=== PATIENT | male | born 1940 | race Caucasian/White ===

== ENCOUNTER 2017-09-07 10:37 | Emergency (ER) | payer MEDICARE, BC ==
[2017-09-07 10:48] VITALS: BP 130/97
--- NOTE | 2017-09-07 11:20 | ERNOTE ---
ER Male HPI Date of Service: 09/07/17 Stated Complaint: BATHROOM ISSUES Time Seen by Provider: 09/07/17 10:53 Source: patient Exam Limitations: no limitations Immunizations: IMMUNIZATION HX Immunizations Up to Date No Allergies/Adverse Reactions: Allergies No Known Allergies Allergy (Unverified 08/26/16 08:31) Home Medications: HOME MEDICATIONS Simvastatin [Zocor] 40 mg PO HS 08/26/16 [Last Taken Unknown] metFORMIN HCL [Glumetza] 1,000 mg PO BID 08/26/16 [Last Taken Unknown] - History of Present Illness Narrative: Pt. comes in with c/o his foreskin not being able to pull back over the head of heis penis when he urinates. Pt. denies any burning with urination, pain, swelling, fever, alleviating or aggravating factor. Pt. states that he and his have attempted to get his foreskin pulled back but it did not help. Review of Systems - Review of Systems Constitutional: Present: no symptoms reported. Absent: recent illness, fever, chills, weakness, fatigue, malaise EYE: Present: no symptoms reported ENT: Present: no symptoms reported Respiratory: Present: no symptoms reported. Absent: shortness of breath, cough , wheezing Cardiology: Present: no symptoms reported. Absent: chest pain, palpitations, edema Gastrointestinal/Abdominal: Present: no symptoms reported. Absent: nausea, vomiting, diarrhea Genitourinary: Present: other - foreskin unable to retract over head of penis Musculoskeletal: Present: no symptoms reported. Absent: back pain, joint pain Skin: Present: no symptoms reported Neurological: Present: no symptoms reported Endocrine: Present: no symptoms reported Hematologic/Lymphatic: Present: no symptoms reported All Other Systems: All systems neg except as marked - Patient's Past Medical History Patient History - Medical: Diabetes Type 2 Patient History - Cardiac/Respiratory: Hyperlipidemia Patient History - Cancer: No Hx of Cancer Patient History - Surgical Procedures: Other - Social History Living Situations: home Psych History: No pertinent hx - Immunizations Immunizations Up to Date: No Physical Exam - Physical Exam General Appearance: Present: wd/wn, alert, no apparent distress Head Exam: Present: normal inspection, no evidence of injury Eye Exam: Normal inspection: bilateral Respiratory: Present: no respiratory distress, normal breath sounds, no accessory muscle use, chest nontender, lungs clear Cardiovascular/Chest: Present: regular rate, rhythm, no murmur, normal peripheral pulses Male Genitals Exam: Present: normal genitalia, normal prostate, no hernia, other - foreskin retracts normally after having gentle stretching applied to fore skin while retracting. Neurological Exam: Present: alert, oriented, normal mood/affect, no motor/ sensory deficits Skin Exam: Present: normal color, warm/dry. Absent: pallor, skin rash ED Progress - Date and Time Seen: Date and Time: 09/07/17 11:09 Demonstrated for and pt. the appropriate way to clean and retract fore skin and to make sure the fore skin is placed back over the head of the penis after each episode of cleaning, urination, and intercourse. They state understanding. - Vital Signs Patient's Vital Signs:: I have reviewed the patient's vital signs. Vital Signs: Vital Signs 09/07/17 10:42 Temperature 36.3 C L Pulse Rate 91 Respiratory 17 Rate Blood Pressure 130/97 O2 Sat by Pulse 95 Oximetry - Progress/Reassessment Chief Complaint: Genitourinary Problem Departure Clinical Impression: Foreskin problem - Departure Disposition: Home self-care Condition: Good Instructions: Foreskin Hygiene, Adult Additional Instructions: Please follow up with primary provider in 2-3 days if not improved. Continue to pull foreskin back twice a day.
== END 2017-09-07 11:05 | disposition home or self-care (01) ==
LOC: ER 10:37
DX: N47.8 Other disorders of prepuce (principal)